=== PATIENT | female | born 1985 | race Caucasian/White ===

== ENCOUNTER 2019-07-13 08:00 | Outpatient (CLI) | payer BC, OTHER ==
[2019-07-13 18:25] LABS: BASOPHILS % (AUTO) 0.4 %; EOSINOPHILS # (AUTO) 0.1 10^3/uL (0.0-0.7); EOSINOPHILS % (AUTO) 0.7 %; HGB - HEMOGLOBIN 14.3 g/dL (12.0-16.0); LYMPHOCYTES # (AUTO) 2.6 10^3/uL (1.5-3.5); LYMPHOCYTES % (AUTO) 28.9 %; MEAN CORPUSCULAR HEMOGLOBIN 30.4 pg (27.0-31.0); MEAN CORPUSCULAR HGB CONC 33.6 g/dL (32.0-36.0); MEAN CORPUSCULAR VOLUME 90.2 fL (81.0-99.0); MEAN PLATELET VOLUME 9.3 fL (7.9-10.8); MONOCYTES # (AUTO) 0.5 10^3/uL (0.0-1.0); NEUTROPHILS # (AUTO) 5.7 10^3/uL (1.5-6.6); NEUTROPHILS % (AUTO) 63.8 %; PLT - PLATELET COUNT 254 10^3/uL (130-450); RED BLOOD COUNT 4.71 10^6/uL (4.20-5.40); RED CELL DISTRIBUTION WIDTH 13.1 % (12.0-15.0); WHITE BLOOD COUNT 8.9 x10^3/uL (4.8-10.8)
[2019-07-13 18:49] LABS: ALBUMIN 4.1 g/dL (3.2-5.5); ALBUMIN/GLOBULIN RATIO 1.2 (1.0-2.2); ALKALINE PHOSPHATASE 60 IU/L (42-121); ALT ALANINE AMINOTRANSFERASE 26 IU/L (10-60); AST ASPARTATE AMINOTRANSFERASE 18 IU/L (10-42); BILIRUBIN,TOTAL 0.7 mg/dL (0.2-1.0); BUN - BLOOD UREA NITROGEN 16 mg/dL (6-20); CALCIUM 8.9 mg/dL (8.5-10.3); CARBON DIOXIDE - CO2 24 mmol/L (21-32); CHLORIDE 107 mmol/L (101-111); CHOL/HDL RATIO 5.4 (<4.4); CHOLESTEROL 194 mg/dL; CREATININE 0.6 mg/dL (0.4-1.0); GFR - MDRD 113 (>89); GLUCOSE 81 mg/dL (70-100); HDL CHOLESTEROL 36 mg/dL; LDL CHOLESTEROL,CALCULATED 133 mg/dL; LDL/HDL RATIO 3.7 (<4.4); SODIUM 138 mmol/L (135-145); TOTAL PROTEIN 7.6 g/dL (6.7-8.2); VLDL CHOLESTEROL 25 mg/dL
== END 2019-07-13 23:59 | disposition home or self-care (01) ==
LOC: LAB.WCP 08:00
PROVIDERS: ATTEND Physician Assistant Medical
DX: Z00.00 Encounter for general adult medical examination without abnormal findings (principal)
CPT/HCPCS: 36415; 80053; 80061; 83721; 84443; 85025

== ENCOUNTER 2020-06-09 11:10 | Outpatient (CLI) | payer OTHER | END 2020-06-09 23:59 | disposition home or self-care (01) | LOC: COV 11:10 | PROVIDERS: ATTEND Family Medicine | DX: R19.7 Diarrhea, unspecified (principal); R09.81 Nasal congestion; Z20.828 Contact with and (suspected) exposure to other viral communicable diseases ==

== ENCOUNTER 2020-09-12 20:09 | Outpatient (CLI) | payer OTHER | END 2020-09-12 20:10 | disposition home or self-care (01) | LOC: COV 20:09 | PROVIDERS: ATTEND Family Medicine | DX: R50.9 Fever, unspecified (principal); R05 Cough; M79.10 Myalgia, unspecified site; R09.81 Nasal congestion; Z20.828 Contact with and (suspected) exposure to other viral communicable diseases ==

== ENCOUNTER 2021-02-11 07:00 | Outpatient (CLI) | payer OTHER ==
--- NOTE | 2021-02-11 16:40 | XRAY Report ---
PROCEDURE: Sacrum/Coccyx INDICATIONS: COCCYX PX TECHNIQUE: 3 views of the sacrum and coccyx acquired. COMPARISON: None FINDINGS: Bones: No fractures or dislocations. No suspicious bony lesions. Soft tissues: Visualized bowel gas pattern is normal. No suspicious soft tissue densities. IUD proj ects over the mid pelvis. IMPRESSION: No fracture. No osseous lesion. If there are persistent symptoms or continued clinical concern for pa thology, then repeat plain film radiographs (7-10 days) or advanced imaging (CT, MR, bone scan) shoul d be considered for further evaluation. Reviewed by: Pallavi Calhoun MD, PhD on 02/11/2021 4:38 PM PDT Approved by: Pallavi Calhoun MD, PhD on 02/11/2021 4:38 PM PDT Station ID: [id number]
== END 2021-02-11 23:59 | disposition home or self-care (01) ==
LOC: DI.N 07:00
PROVIDERS: ATTEND Nurse Practitioner
DX: M53.3 Sacrococcygeal disorders, not elsewhere classified (principal)

== ENCOUNTER 2021-04-02 07:07 | Outpatient (CLI) | payer OTHER ==
--- NOTE | 2021-04-02 13:52 | CT Report ---
PROCEDURE: PELVIS WO INDICATIONS: COCCYX PAIN TECHNIQUE: Noncontrast 3 mm axial sections acquired through the bony pelvis, with coronal and sagittal reformatt ing. For radiation dose reduction, the following was used: automated exposure control, adjustment of mA and/or kV according to patient size. COMPARISON: None. FINDINGS: Image quality: Excellent. And abnormal anterior angulation of the distalmost coccygeal segment, with inner coccygeal angle of a pproximately 45 degrees degrees (normal is 5-25 degrees). There also appears to be ankylosis of the c occygeal segments as well as abnormal features of the coccygeal tip including a small possible spicul e projecting inferiorly (series 7 image 73). Otherwise normal appearance of the sacrum and coccyx. There is no evidence of a soft tissue mass or i nflammatory changes in the region. Partially visualized lower lumbar spine is unremarkable. IUD noted. Scattered sigmoid diverticuli. Regional soft tissues are otherwise within normal limits. IMPRESSION: Anterior angulation of the distal coccyx with increased intercoccygeal angle. Possible small spicule of the coccyx projecting inferiorly, a potential source of pain. 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 Reviewed by: Zeke Perez MD on 04/02/2021 1:50 PM PDT Approved by: Zeke Perez MD on 04/02/2021 1:50 PM PDT Station ID: [id number]
== END 2021-04-02 07:08 | disposition home or self-care (01) ==
LOC: DI 07:07
PROVIDERS: ATTEND Family Medicine
DX: M53.3 Sacrococcygeal disorders, not elsewhere classified (principal)

== ENCOUNTER 2021-07-15 12:46 | Emergency (ER) | payer OTHER ==
[2021-07-15 13:15] LABS: BASOPHILS % (AUTO) 0.3 %; EOSINOPHILS # (AUTO) 0.2 10^3/uL (0.0-0.7); EOSINOPHILS % (AUTO) 1.2 %; HGB - HEMOGLOBIN 14.7 g/dL (12.0-16.0); LYMPHOCYTES # (AUTO) 2.3 10^3/uL (1.5-3.5); LYMPHOCYTES % (AUTO) 16.4 %; MEAN CORPUSCULAR HEMOGLOBIN 31.6 pg (27.0-31.0); MEAN CORPUSCULAR HGB CONC 35.9 g/dL (32.0-36.0); MEAN CORPUSCULAR VOLUME 88.2 fL (81.0-99.0); MONOCYTES # (AUTO) 0.7 10^3/uL (0.0-1.0); MONOCYTES % (AUTO) 4.7 %; NEUTROPHILS # (AUTO) 10.6 10^3/uL (1.5-6.6); NEUTROPHILS % (AUTO) 77.1 %; PLT - PLATELET COUNT 241 10^3/uL (130-450); RED BLOOD COUNT 4.65 10^6/uL (4.20-5.40); RED CELL DISTRIBUTION WIDTH 12.6 % (12.0-15.0); WHITE BLOOD COUNT 13.7 x10^3/uL (4.8-10.8)
[2021-07-15 13:28] LABS: ALBUMIN 4.4 g/dL (3.2-5.5); ALBUMIN/GLOBULIN RATIO 1.3 (1.0-2.2); BILIRUBIN,TOTAL 1.3 mg/dL (0.2-1.0); CALCIUM 9.3 mg/dL (8.5-10.3); CREATININE 0.7 mg/dL (0.4-1.0); POTASSIUM 3.9 mmol/L (3.5-5.0); TOTAL PROTEIN 7.9 g/dL (6.7-8.2)
[2021-07-15] MEDS ORDERED: IOPAMIDOL-300 100 ML VIAL ONE (13:45)
[2021-07-15 13:46] LABS: GLUCOSE, URINE (UA) NEGATIVE (NEGATIVE); KETONES,URINE (UA) 15 mg/dL (NEGATIVE); LEUKOCYTE ESTERASE, URINE TRACE (NEGATIVE); NITRITE,URINE NEGATIVE (NEGATIVE); OCCULT BLOOD,URINE SMALL (NEGATIVE); PROTEIN,URINE TRACE mg/dL (NEGATIVE); UROBILINOGEN,URINE 1 (NORMAL) E.U./dL (NORMAL)
[2021-07-15 13:49] LABS: CLARITY,URINE CLEAR (CLEAR); HCG UR QUAL NEGATIVE
[2021-07-15 13:54] LABS: BILIRUBIN,URINE NEGATIVE (NEGATIVE); ICTOTEST,URINE NEGATIVE
[2021-07-15 13:59] LABS: BACTERIA,URINE Few /HPF (None Seen); RBC,URINE 0-5 /HPF (0-5); SQUAMOUS EPITHELIAL CELL,UR MOD Squamous (<= Few); WBC,URINE 0-3 /HPF (0-5)
--- NOTE | 2021-07-15 14:14 | CT Report ---
PROCEDURE: Abdomen/Pelvis W INDICATIONS: RLQ abd pain CONTRAST: IV CONTRAST: Isovue 300 ml: 100 PO CONTRAST: *NO PO CONTRAST TECHNIQUE: After the administration of intravenous contrast, 5 mm thick sections acquired from the diaphragms to the symphysis. 5 mm thick coronal and sagittal reformats were acquired. For radiation dose reducti on, the following was used: automated exposure control, adjustment of mA and/or kV according to arlette ent size. COMPARISON: None. FINDINGS: Image quality: Excellent. ABDOMEN: Lung bases: Lung bases are clear. Heart size is normal. Solid organs: Liver and spleen are normal in size and enhancement. Gallbladder is normal. Biliary system is non dilated. Pancreas enhances normally. No adrenal nodules. Kidneys demonstrate normal size and enhancement, without hydronephrosis. Peritoneum and bowel: Normal appendix. No mesenteric or pericolonic fat stranding. Normal caliber of the small and large bowel with no evidence of bowel wall thickening. Nodes and vessels: No retroperitoneal or mesenteric adenopathy by size criteria. Aorta and inferior vena cava are normal in size. Miscellaneous: No ventral hernias. PELVIS: Genitourinary: Bladder wall thickness is normal. IUD in the uterus. Ovaries unremarkable. Miscellaneous: No inguinal hernias or adenopathy. Bones: No suspicious bony lesions. No vertebral body compression fractures. IMPRESSION: No findings of acute appendicitis or other acute process to explain symptoms. Reviewed by: Zeke Perez MD on 07/15/2021 2:13 PM PDT Approved by: Zeke Perez MD on 07/15/2021 2:13 PM PDT Station ID: [id number]
--- NOTE | 2021-07-15 15:06 | ED Physician Documentation ---
History of Present Illness - Stated complaint Stated Complaint: ABD PX - Chief complaint Chief Complaint: Abd Pain - History obtained from History obtained from: Patient - Additonal information Additional information: Patient comes emergency department chief complaint of right lower quadrant abdominal pain that started yesterday. Patient states that it has just been lingering and seems to not be getting any better or worse. She also had a temperature which she measured at one 1.7 yesterday and again at 100.5 this morning. Patient went to walk-in clinic but was told to come here/get CT scan. Patient denies any nausea or vomiting. No dysuria or back pain. No history of ovarian cyst. No vaginal symptoms. No other complaints at this time. Review of Systems Ten Systems: 10 systems reviewed and negative Constitutional: reports: Reviewed and negative Eyes: reports: Reviewed and negative Ears: reports: Reviewed and negative Nose: reports: Reviewed and negative Throat: reports: Reviewed and negative Cardiac: reports: Reviewed and negative Respiratory: reports: Reviewed and negative GI: reports: Abdominal Pain : reports: Reviewed and negative Skin: reports: Reviewed and negative Musculoskeletal: reports: Reviewed and negative Neurologic: reports: Reviewed and negative Psychiatric: reports: Reviewed and negative Endocrine: reports: Reviewed and negative Immunocompromised: reports: Reviewed and negative PD PAST MEDICAL HISTORY - Past Medical History Past Medical History: Yes Cardiovascular: None Respiratory: Asthma Neuro: None GI: GERD 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 : None HEENT: None Psych: None Musculoskeletal: Chronic back pain Derm: None - Past Surgical History Past Surgical History: No - Present Medications Home Medications: Ambulatory Orders Medication Instructions Recorded Confirmed Albuterol Sulfate [Proventil Hfa 1 - 2 puffs IH Q4HR PRN 02/13/14 07/15/21 Inhaler] Celecoxib [Celebrex] 200 mg PO DAILY 07/15/21 07/15/21 Omeprazole Magnesium 20 mg PO DAILY 07/15/21 07/15/21 - Allergies Allergies/Adverse Reactions: Allergies Allergy/AdvReac Type Severity Reaction Status Date / Time No Known Drug Allergies Allergy Verified 07/15/21 12:55 - Social History Does the pt smoke?: No Smoking Status: Never smoker Does the pt drink ETOH?: Yes Does the pt have substance abuse?: No - Immunizations Immunizations are current?: No Immunizations: TDAP current <10years - POLST Patient has POLST: No PD ED PE NORMAL - Vitals Vital signs reviewed: Yes - General General: Alert and oriented X 3, No acute distress, Well developed/nourished - HEENT HEENT: Atraumatic, PERRL, EOMI, Moist mucous membranes - Neck Neck: Supple, no meningeal sign - Cardiac Cardiac: RRR, No murmur, Strong equal pulses - Respiratory Respiratory: No respiratory distress, Clear bilaterally - Abdomen Abdomen: Soft, Non distended, Other (Moderate tenderness right lower quadrant, no rebound or guarding.) - Back Back: No CVA TTP - Derm Derm: Normal color, Warm and dry, No rash - Extremities Extremities: No deformity, No edema, No calf tenderness / cord - Neuro Neuro: Alert and oriented X 3, ampoule filler 2-12 intact, Normal speech - Psych Psych: Normal mood, Normal affect Results - Vitals Vitals: Vital Signs - 24 hr 07/15/21 07/15/21 12:55 15:16 Temperature 36.9 C Heart Rate 91 89 Respiratory 16 18 Rate Blood Pressure 120/67 117/71 O2 Saturation 96 100 Oxygen O2 Source Room air - Labs Labs: Laboratory Tests 07/15/21 07/15/21 07/15/21 13:11 13:11 13:22 WBC 13.7 H RBC 4.65 Hgb 14.7 Hct 41.0 MCV 88.2 MCH 31.6 H MCHC 35.9 RDW 12.6 Plt Count 241 MPV 9.0 Neut # (Auto) 10.6 H Lymph # (Auto) 2.3 Hayes # (Auto) 0.7 Eos # (Auto) 0.2 Baso # (Auto) 0.0 Absolute Nucleated RBC 0.00 Nucleated RBC % 0.0 Sodium 140 Potassium 3.9 Chloride 106 Carbon Dioxide 24 Anion Gap 10.0 BUN 21 H Creatinine 0.7 Estimated GFR (MDRD) 94 Glucose 103 H Calcium 9.3 Total Bilirubin 1.3 H AST 15 ALT 21 Alkaline Phosphatase 65 Total Protein 7.9 Albumin 4.4 Globulin 3.5 Albumin/Globulin Ratio 1.3 Lipase 18 L Urine Color DARK YELLOW Urine Clarity CLEAR Urine pH 6.0 Ur Specific [place] 1.025 Urine Protein TRACE Urine Glucose (UA) NEGATIVE Urine Ketones 15 H Urine Occult Blood SMALL H Urine Nitrite NEGATIVE Urine Bilirubin NEGATIVE Urine Urobilinogen 1 (NORMAL) Ur Leukocyte Esterase TRACE H Urine RBC 0-5 Urine WBC 0-3 Ur Squamous Epith Cells MOD Squamous H Urine Bacteria Few Ur Microscopic Review INDICATED Urine Culture Comments NOT INDICATED Urine HCG, Qual NEGATIVE - Rads (name of study) CT abd/pelvis Radiology: Final report received, EMP read indepedently, See rad report (neg) PD MEDICAL DECISION MAKING - ED course Complexity details: reviewed results, re-evaluated patient, considered differential, d/w patient ED course: ,Patient was worked up with labs, which showed a leukocytosis of 13.7 urinalysis, which was contaminated but minimally otherwise positive, and a CT scan of the abdomen and pelvis, which was unremarkable. The patient was not febrile here. I discussed with her that her work-up is negative and that at this point in time I am not sure if she has a viral syndrome or if she has a condition such as appendicitis or UTI that just has not quite declared itself yet. We discussed having a low threshold for return for pain should worsen, and we also discussed that if she is not any better tomorrow in about 24 hours, she should come back for reevaluation. We discussed symptomatic management at home the usual indications for return. Departure - Departure Disposition: 01 Home, Self Care Clinical Impression: Abdominal pain Qualifiers: Abdominal location: right lower quadrant Qualified Code(s): R10.31 - Right l ower quadrant pain Condition: Stable Instructions: ED Abdominal Pain Unkn Cause Comments: Your white blood cell count was moderately elevated, but your CT scan was negative. It is possible that you have a viral syndrome that is locally inflaming some of your lymph nodes. However, sometimes the sorts of situations occur when you are in the early end of urinary tract infection or appendicitis. As such, if your pain is not improved at all by 24 hours from now, you should come and have both your blood count and your CT scan rechecked. If your pain acutely worsens at some point before then, you should come at that time. If it seems like things are gradually getting better, then you do not need to return to the emergency department, and can fairly safely assume that this is a viral illness. You may take ibuprofen and/or Tylenol to help with your symptoms at home. Please drink plenty of fluids. Forms: Activity restrictions Discharge Date/Time: 07/15/21 15:17
[2021-07-15 15:17] VITALS: BP 117/71
[2021-07-15] MEDS ORDERED: IOPAMIDOL-300 100 ML VIAL IVP ONE (19:05)
== END 2021-07-15 15:17 | disposition home or self-care (01) ==
LOC: ED 12:46
DX: R10.31 Right lower quadrant pain (principal); D72.829 Elevated white blood cell count, unspecified
CPT/HCPCS: 36415; 74177; 80053; 81001; 81025; 83690; 85025; 99284; Q9967; 81003; 87086

== ENCOUNTER 2022-01-12 17:14 | Outpatient (CLI) | payer OTHER ==
--- NOTE | 2022-01-13 12:11 | XRAY Report ---
PROCEDURE: Cervical Spine 2 View INDICATIONS: R ARM PX TECHNIQUE: 3 view(s) of the cervical spine were acquired. COMPARISON: None. FINDINGS: Bones: No fractures or dislocations to the C7-T1 level. Straightening of normal cervical lordosis i s seen. The lateral masses of C1 appear intact on the odontoid view. No suspicious bony lesions. Soft tissues: No prevertebral soft tissue swelling. IMPRESSION: Straightening of normal cervical lordosis. No cervical spine fracture or dislocation. No gross prevertebral soft tissue abnormality. Reviewed by: Juve Santos MD on 01/13/2022 12:09 PM PST Approved by: Juve Santos MD on 01/13/2022 12:09 PM PST Station ID: [id number]
== END 2022-01-12 23:59 | disposition home or self-care (01) ==
LOC: DI.N 17:14
PROVIDERS: ATTEND Physician Assistant Medical
DX: M79.601 Pain in right arm (principal)

== ENCOUNTER 2023-01-03 10:07 | Outpatient (CLI) | payer OTHER ==
[2023-01-03 10:27] LABS: BASOPHILS # (AUTO) 0.1 10^3/uL (0.0-0.1); BASOPHILS % (AUTO) 0.8 %; EOSINOPHILS # (AUTO) 0.1 10^3/uL (0.0-0.7); EOSINOPHILS % (AUTO) 1.6 %; HCT - HEMATOCRIT 42.6 % (37.0-47.0); HGB - HEMOGLOBIN 14.5 g/dL (12.0-16.0); LYMPHOCYTES % (AUTO) 37.7 %; MEAN CORPUSCULAR HEMOGLOBIN 29.6 pg (27.0-31.0); MEAN CORPUSCULAR VOLUME 86.9 fL (81.0-99.0); MEAN PLATELET VOLUME 8.7 fL (7.9-10.8); MONOCYTES # (AUTO) 0.6 10^3/uL (0.0-1.0); MONOCYTES % (AUTO) 6.9 %; NEUTROPHILS # (AUTO) 4.2 10^3/uL (1.5-6.6); NEUTROPHILS % (AUTO) 52.7 %; PLT - PLATELET COUNT 281 10^3/uL (130-450); RED CELL DISTRIBUTION WIDTH 12.7 % (12.0-15.0)
[2023-01-03 10:36] LABS: ALBUMIN 4.4 g/dL (3.2-5.5); ALBUMIN/GLOBULIN RATIO 1.3 (1.0-2.2); ALKALINE PHOSPHATASE 69 IU/L (42-121); ALT ALANINE AMINOTRANSFERASE 22 IU/L (10-60); AST ASPARTATE AMINOTRANSFERASE 18 IU/L (10-42); BILIRUBIN,TOTAL 0.7 mg/dL (0.2-1.0); BUN - BLOOD UREA NITROGEN 16 mg/dL (6-20); CALCIUM 9.4 mg/dL (8.5-10.3); CARBON DIOXIDE - CO2 24 mmol/L (21-32); CHLORIDE 102 mmol/L (101-111); CHOL/HDL RATIO 5.9 (<4.4); CHOLESTEROL 172 mg/dL; CREATININE 0.7 mg/dL (0.4-1.0); GFR - MDRD 93 (>89); GLUCOSE 107 mg/dL (70-100); HDL CHOLESTEROL 29 mg/dL; LDL CHOLESTEROL,CALCULATED 102 mg/dL; LDL/HDL RATIO 3.5 (<4.4); SODIUM 137 mmol/L (135-145); TOTAL PROTEIN 7.9 g/dL (6.7-8.2); TRIGLYCERIDES 206 mg/dL; VLDL CHOLESTEROL 41 mg/dL
[2023-01-03 10:48] LABS: THYROID STIMULATING HORMONE 2.47 uIU/mL (0.34-5.60)
== END 2023-01-03 10:08 | disposition home or self-care (01) ==
LOC: LAB 10:07
PROVIDERS: ATTEND Nurse Practitioner
DX: R53.83 Other fatigue (principal); Z13.220 Encounter for screening for lipoid disorders
CPT/HCPCS: 36415; 80053; 80061; 83721; 84443; 85025

== ENCOUNTER 2023-03-08 09:30 | Day surgery (SDC) | payer OTHER ==
[2023-03-08] MEDS ORDERED: LACTATED RINGERS 1,000 ML IV ONE (09:56)
[2023-03-08] MEDS ORDERED: BUPIVACAINE 0.5% PF 30 ML VIAL ONE (09:57)
[2023-03-08] MEDS ORDERED: POTASSIUM IODIDE/IODINE 14 ML SOLUTION ONE (10:00)
[2023-03-08 10:12] LABS: HCG UR QUAL NEGATIVE
[2023-03-08 10:45] LABS: BASOPHILS # (AUTO) 0.1 10^3/uL (0.0-0.1); BASOPHILS % (AUTO) 0.8 %; EOSINOPHILS # (AUTO) 0.1 10^3/uL (0.0-0.7); EOSINOPHILS % (AUTO) 1.6 %; HCT - HEMATOCRIT 40.3 % (37.0-47.0); HGB - HEMOGLOBIN 14.1 g/dL (12.0-16.0); LYMPHOCYTES # (AUTO) 2.7 10^3/uL (1.5-3.5); LYMPHOCYTES % (AUTO) 38.7 %; MEAN CORPUSCULAR HEMOGLOBIN 30.3 pg (27.0-31.0); MEAN CORPUSCULAR VOLUME 86.5 fL (81.0-99.0); MEAN PLATELET VOLUME 8.8 fL (7.9-10.8); MONOCYTES # (AUTO) 0.4 10^3/uL (0.0-1.0); MONOCYTES % (AUTO) 5.9 %; NEUTROPHILS # (AUTO) 3.7 10^3/uL (1.5-6.6); NEUTROPHILS % (AUTO) 52.7 %; PLT - PLATELET COUNT 302 10^3/uL (130-450); RED BLOOD COUNT 4.66 10^6/uL (4.20-5.40); WHITE BLOOD COUNT 7.1 x10^3/uL (4.8-10.8)
[2023-03-08] MEDS ORDERED: MIDAZOLAM 2 MG/2 ML VIAL ONE (14:03)
[2023-03-08] MEDS ORDERED: PROPOFOL 500 MG/50 ML 500 MG/50 ML VIAL ONE (14:03)
[2023-03-08] MEDS ORDERED: fentaNYL 100 MCG/2 ML VIAL ONE (14:21)
[2023-03-08] MEDS ORDERED: PROPOFOL 200 MG/20 ML VIAL IVP ONE (14:38)
[2023-03-08] MEDS ORDERED: BUPIVACAINE 0.5% PF 30 ML VIAL SUBQ ONE ×2 (14:38)
[2023-03-08] MEDS ORDERED: FERRIC SUBSULFATE 8 ML SOLUTION (FOR OR) TOP ONE (14:39)
[2023-03-08] MEDS ORDERED: POTASSIUM IODIDE/IODINE 14 ML SOLUTION TOP ONE (14:39)
--- NOTE | 2023-03-08 14:54 | ANESTHESIA ---
Pre-Anesthesia VS, & Labs - Diagnosis cervical polyp - Procedure LEEP Vital Signs: Temp Pulse Resp BP Pulse Ox O2 Flow Rate 36.2 C L 80 16 114/63 95 03/08/23 09:57 03/08/23 09:57 03/08/23 09:57 03/08/23 09:57 03/08/23 09:57 Height: 5 ft 1 in Weight (kg): 91 kg Body Mass Index: 37.9 BMI Classification: Obese - NPO >8 hours - Is Patient ?: No - Lab Results Current Lab Results: Laboratory Tests 03/08/23 10:41: WBC 7.1, RBC 4.66, Hgb 14.1, Hct 40.3, MCV 86.5, MCH 30.3, MCHC 35.0, RDW 12.0, Plt Count 302, MPV 8.8, Neut # (Auto) 3.7, Lymph # (Auto) 2.7, Mitchell # (Auto) 0.4, Eos # (Auto) 0.1, Baso # (Auto) 0.1, Absolute Nucleated RBC 0.00, Nucleated RBC % 0.0 Fish Bones: 03/08/23 10:41 Home Medications and Allergies Home Medications: Ambulatory Orders traMADol [Ultram] 50 mg PO Q4-6H 02/24/23 Prolotherapy 03/08/23 Omeprazole Magnesium 20 mg PO DAILY 07/15/21 traMADol [Ultram] 50 mg PO Q4-6H 02/24/23 Prolotherapy 03/08/23 Allergies/Adverse Reactions: Allergies Allergy/AdvReac Type Severity Reaction Status Date / Time No Known Drug Allergies Allergy Verified 07/15/21 12:55 Anes History & Medical History - Anesthetic History Anesthesia Complications: reports: No previous complications Family history of Anesthesia Complications: Denies Family history of Malignant Hyperthermia: Denies - Medical History Cardiovascular: reports: None Pulmonary: reports: Asthma, Sleep apnea Gastrointestinal: reports: GERD Urinary: reports: None Neuro: reports: None Musculoskeletal: reports: Chronic back pain Endocrine/Autoimmune: reports: Other Blood Disorders: reports: None Skin: reports: None Smoking Status: Never smoker - Surgical History Gynecologic: reports: LEEP (Cervical surgery) Exam General: Alert, Oriented x3, Cooperative Dental: WNL Mouth Openin Fingerbreadth Neck Mobility: Normal Mallampati classification: III Thyromental Distance: 4-6 cm Respiratory: Lungs clear Cardiovascular: Regular rate Plan Anesthesia Type: Total IV Consent for Procedure(s) Verified and Reviewed: Yes Code Status: Attempt Resuscitation ASA classification: 2-Mild systemic disease Is this case an emergency?: No
[2023-03-08] MEDS ORDERED: oxyCODONE 5 MG TABLET PO PRN (15:00)
[2023-03-08] MEDS ORDERED: IBUPROFEN 600 MG TABLET PO PRN (15:00)
--- NOTE | 2023-03-08 15:03 | OPERATIVE REPORT ---
Operative Report - General Procedure Date: 03/08/23 Planned Procedure: LEEP cervical conization and endocervical curettage Pre-Op Diagnosis: Severe cervical dysplasia Procedure Performed: LEEP cervical conization and endocervical curettage Post Op Diagnosis: Same - Procedure Note Primary Surgeon: Alek Hansen MD Anesthesia Provider: Trinidad North CRNA Anesthesia Technique: Other (TIVA) Pathology: Anterior cervical Posterior cervical lip Endocervical margin Endocervical curettage IV Fluids (mL): 250 Estimated Blood Loss (mL): 15 Urine Output (mL): 25 Complications: None - Other Other Information/Narrative: Patient was taken the operating room and placed in dorsolithotomy position. TIVA anesthesia was obtained without difficulty. Coated speculum was used to visualize the cervix. IUD strings were noted coming from the cervical os. The large loop was used to perform cervical conization, however the anterior lip came off separate from the posterior lip. The cautery tip was exchanged for a square and the endocervical margin was resected in a Top-Hat fashion. An ECC was then performed with a Kevorkian curette. Hemostasis was achieved with ball electrocautery followed by Monsel solution. Patient was hemostatic and all instruments were removed from the vagina. Patient was taken the PACU in stable condition.
[2023-03-08 15:54] VITALS: BP 126/72
[2023-03-08] MEDS ORDERED: LACTATED RINGERS 800 ML IV ONE (15:56)
== END 2023-03-08 23:59 | disposition home or self-care (01) ==
LOC: SDS 09:30
PROVIDERS: ATTEND Obstetrics & Gynecology
PROC: 0UBC7ZZ Excision of Cervix, Via Natural or Artificial Opening (ICD-10-PCS; principal; 2023-03-08 11:00)
DX: N87.1 Moderate cervical dysplasia (principal); E66.9 Obesity, unspecified; Z68.37 Body mass index [BMI] 37.0-37.9, adult; G47.30 Sleep apnea, unspecified; Z97.5 Presence of (intrauterine) contraceptive device
CPT/HCPCS: 57522; 81025; 85025; J7120

== ENCOUNTER 2023-09-13 12:39 | Day surgery (SDC) | payer OTHER ==
[2023-09-13] MEDS ORDERED: LACTATED RINGERS 1,000 ML IV ONE ×2 (12:40→15:15)
[2023-09-13 12:59] LABS: HCG UR QUAL NEGATIVE
[2023-09-13 13:15] LABS: BASOPHILS % (AUTO) 0.4 %; EOSINOPHILS # (AUTO) 0.1 10^3/uL (0.0-0.7); EOSINOPHILS % (AUTO) 1.3 %; HCT - HEMATOCRIT 41.5 % (37.0-47.0); HGB - HEMOGLOBIN 14.8 g/dL (12.0-16.0); LYMPHOCYTES # (AUTO) 3.2 10^3/uL (1.5-3.5); LYMPHOCYTES % (AUTO) 42.4 %; MEAN CORPUSCULAR HEMOGLOBIN 30.4 pg (27.0-31.0); MEAN CORPUSCULAR HGB CONC 35.7 g/dL (32.0-36.0); MEAN CORPUSCULAR VOLUME 85.2 fL (81.0-99.0); MEAN PLATELET VOLUME 8.8 fL (7.9-10.8); MONOCYTES # (AUTO) 0.4 10^3/uL (0.0-1.0); MONOCYTES % (AUTO) 5.3 %; NEUTROPHILS # (AUTO) 3.8 10^3/uL (1.5-6.6); NEUTROPHILS % (AUTO) 50.3 %; PLT - PLATELET COUNT 299 10^3/uL (130-450); RED BLOOD COUNT 4.87 10^6/uL (4.20-5.40); RED CELL DISTRIBUTION WIDTH 12.3 % (12.0-15.0); WHITE BLOOD COUNT 7.5 x10^3/uL (4.8-10.8)
[2023-09-13] MEDS ORDERED: ONDANSETRON 4 MG/2 ML VIAL IVP PRN (13:16)
[2023-09-13] MEDS ORDERED: NALOXONE 0.4 MG/ML VIAL IVP PRN (13:16)
[2023-09-13] MEDS ORDERED: HYDROmorphone 0.5 MG/0.5 ML SYRINGE IVP PRN (13:16)
[2023-09-13] MEDS ORDERED: ATROPINE ABBOJECT 1 MG/10 ML SYRINGE IVP PRN (13:16)
[2023-09-13] MEDS ORDERED: ePHEDrine 50 MG/ML VIAL IVP PRN (13:16)
[2023-09-13] MEDS ORDERED: fentaNYL 100 MCG/2 ML VIAL IVP PRN (13:16)
--- NOTE | 2023-09-13 13:16 | ANESTHESIA ---
Pre-Anesthesia VS, & Labs - Diagnosis asc-h - Procedure cold knife cone Vital Signs: Temp Pulse Resp BP Pulse Ox O2 Flow Rate 36.3 C L 83 17 126/67 97 09/13/23 13:00 09/13/23 13:00 09/13/23 13:00 09/13/23 13:00 09/13/23 13:00 Height: 5 ft 1 in Weight (kg): 88.5 kg Body Mass Index: 36.8 BMI Classification: Obese - NPO >8 hours - Is Patient ?: No - Lab Results Lab results reviewed: Yes Home Medications and Allergies Home Medications: Ambulatory Orders Phentermine HCl 7.5 mg PO DAILY 09/06/23 Omeprazole Magnesium 20 mg PO DAILY 07/15/21 Phentermine HCl 7.5 mg PO DAILY 09/06/23 Allergies/Adverse Reactions: Allergies Allergy/AdvReac Type Severity Reaction Status Date / Time No Known Drug Allergies Allergy Verified 07/15/21 12:55 Anes History & Medical History - Anesthetic History Anesthesia Complications: reports: No previous complications Family history of Anesthesia Complications: Denies Family history of Malignant Hyperthermia: Denies - Medical History Cardiovascular: reports: None Pulmonary: reports: Asthma, Sleep apnea Gastrointestinal: reports: GERD Urinary: reports: None Neuro: reports: None Musculoskeletal: reports: Chronic back pain Endocrine/Autoimmune: reports: Other Blood Disorders: reports: None Skin: reports: None Smoking Status: Never smoker - Surgical History Gynecologic: reports: LEEP (Cervical surgery) Exam General: Alert, Oriented x3, Cooperative Dental: WNL, Other (braces) Mouth Openin Fingerbreadth Neck Mobility: Normal Mallampati classification: II Thyromental Distance: 4-6 cm Respiratory: Lungs clear Cardiovascular: Regular rate Plan Anesthesia Type: General, MAC Consent for Procedure(s) Verified and Reviewed: Yes Code Status: Attempt Resuscitation ASA classification: 2-Mild systemic disease Is this case an emergency?: No
[2023-09-13] MEDS ORDERED: PROPOFOL 500 MG/50 ML 500 MG/50 ML VIAL ONE ×2 (13:28→14:40)
[2023-09-13] MEDS ORDERED: fentaNYL 100 MCG/2 ML VIAL ONE (13:30)
[2023-09-13] MEDS ORDERED: MIDAZOLAM 2 MG/2 ML VIAL ONE (13:30)
[2023-09-13] MEDS ORDERED: LACTATED RINGERS 1,000 ML IV SCH (14:00)
--- NOTE | 2023-09-13 14:07 | HISTORY & PHYSICAL EXAMINATION ---
HPI - History Obtained From History obtained from: Patient Exam limitations: No limitations - History of Present Illness HPI Comment/Other: HPI: Patient is a 38-year-old -0-1-2 presenting today for scheduled cold knife conization. She had a previous LEEP for ANGELA-3 that was negative except for ANGELA- 2 in the ECC. Prior to that her Pap smear was atypical glandular cells favor neoplastic H CASA, with HPV positive. She subsequently had a repeat Pap smear showing ASC-H with negative ECC. We discussed options and patient elected for a conization rather than proceed with hysterectomy. All other symptoms reviewed and were negative except per HPI. PMH ANGELA-3 Obesity Asthma: Likely reactive airway disease GERD De Quervain's tenosynovitis PSH [place] tooth extraction LEEP SH Rare alcohol use. Occasional marijuana. Non-smoker. 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 Respiratory: Normal rate of respiration. No accessory muscle use, normal respiratory effort. Cardiovascular: Regular rate and rhythm Abdomen: Nontender, nondistended Extremities: Normal range of motion Neuro: Oriented x3. Normal movements Psych: Appropriate mood and affect. Normal judgment and insight Plan 38-year-old -0-1-2 with ASC-H 1. Cold knife conization -Discussed risk, benefits, alternatives to cold knife conization and patient like to proceed with excision rather than hysterectomy. She understands the ri sk of bleeding, infection, damage to surrounding organs. She would consent to a blood transfusion. No other concerns and plan for cold knife conization in the OR today. 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: LEEP (Cervical surgery) Social & Family Hx - Social History Does the pt smoke?: No Smoking Status: Never smoker Does the pt drink ETOH?: Yes Does the pt have substance abuse?: No - POLST Patient has POLST: No Meds/Allgy - Home Medications Home Medications: Ambulatory Orders Medication Instructions Recorded Confirmed Omeprazole Magnesium 20 mg PO DAILY 07/15/21 09/13/23 Phentermine HCl 7.5 mg PO DAILY 09/06/23 09/13/23 - Allergies Allergies/Adverse Reactions: Allergies Allergy/AdvReac Type Severity Reaction Status Date / Time No Known Drug Allergies Allergy Verified 07/15/21 12:55 Exam - Vital Signs Vital Signs: Vital Signs x48h Temp Pulse Resp BP Pulse Ox 09/13/23 13:00 97.3 F L 83 17 126/67 97 Results - Lab Results Fish Bones: 09/13/23 12:55 Other Lab Results: Lab Results x24hrs 09/13/23 09/13/23 Range/Units 12:55 12:45 WBC 7.5 (4.8-10.8) x10^3/uL RBC 4.87 (4.20-5.40) 10^6/uL Hgb 14.8 (12.0-16.0) g/dL Hct 41.5 (37.0-47.0) % MCV 85.2 (81.0-99.0) fL MCH 30.4 (27.0-31.0) pg MCHC 35.7 (32.0-36.0) g/dL RDW 12.3 (12.0-15.0) % Plt Count 299 (130-450) 10^3/uL MPV 8.8 (7.9-10.8) fL Neut # (Auto) 3.8 (1.5-6.6) 10^3/uL Lymph # (Auto) 3.2 (1.5-3.5) 10^3/uL [place] # (Auto) 0.4 (0.0-1.0) 10^3/uL Eos # (Auto) 0.1 (0.0-0.7) 10^3/uL Baso # (Auto) 0.0 (0.0-0.1) 10^3/uL Absolute Nucleated RBC 0.00 x10^3/uL Nucleated RBC % 0.0 /100WBC Urine HCG, Qual NEGATIVE
[2023-09-13] MEDS ORDERED: FERRIC SUBSULFATE 8 ML SOLUTION (FOR OR) TOP ONE (14:11)
[2023-09-13] MEDS ORDERED: BUPIVACAINE 0.25% PF 30 ML VIAL SUBQ ONE (14:11)
[2023-09-13] MEDS ORDERED: LIDOCAINE 1%-EPI 1:100000 20 ML MDV SUBQ ONE (14:11)
[2023-09-13] MEDS ORDERED: BUPIVACAINE 0.25% PF 30 ML VIAL ONE (14:20)
[2023-09-13] MEDS ORDERED: LIDOCAINE 1%-EPI 1:100000 20 ML MDV ONE (14:21)
[2023-09-13] MEDS ORDERED: DEXAMETHASONE 4 MG/ML VIAL ONE (14:29)
[2023-09-13] MEDS ORDERED: ONDANSETRON 4 MG/2 ML VIAL ONE (14:29)
[2023-09-13] MEDS ORDERED: KETOROLAC 30 MG/ML VIAL ONE (14:57)
[2023-09-13] MEDS ORDERED: PROPOFOL 200 MG/20 ML VIAL IVP ONE (15:08)
[2023-09-13] MEDS ORDERED: oxyCODONE 5 MG TABLET PO PRN (15:13)
--- NOTE | 2023-09-13 15:16 | OPERATIVE REPORT ---
Operative Report - General Procedure Date: 09/13/23 Planned Procedure: Cold knife conization Pre-Op Diagnosis: ASC-H Procedure Performed: Cold knife conization Post Op Diagnosis: Cold knife conization status post cold knife conization - Procedure Note Primary Surgeon: Alek Hansen MD Anesthesia Provider: Sterling Carter CRNA Anesthesia Technique: Other (IV general) Pathology: Cervical conization with tag at 12:00 IV Fluids (mL): 500 Estimated Blood Loss (mL): 50 Urine Output (mL): 0 (Voided immediately prior to the procedure) Findings: Small cervix, status post LEEP. IUD strings initially not seen in the os, but after conization were seen through the remainder of the os. Surgicel was sewn into place. - Other Other Information/Narrative: Patient was counseled the risk, benefits, alternatives of cold knife conization and was counseled on the process of cervical dysplasia and was offered referral to gynecologic oncology rather than conization, but patient declined. She was taken to the OR where IV general anesthesia was obtained without difficulty. She was placed in the dorsolithotomy position with the legs placed in great white stirrups. Patient voided immediately before the OR. Weighted speculum and right angle speculum was used to visualize the cervix which was notably small and difficult to manipulate due to previous excisions. The anterior lip was grasped with a single-tooth tenaculum. I then performed a cervical block with approximate 4 mL of local anesthesia. Stay sutures then placed at the 3:00 and 9:00 using 2-0 Vicryl. Cervix was then infiltrated with local anesthesia with epinephrine. The cervix then dilated and the dilator left in place. An 11 blade scalpel was then used to make a circumferential incision around the cervix making a cone which was tagged at 12:00. This was removed and sent to pathology. Initially, Bovie cautery was used to achieve hemostasis, but a few small areas remain bleeding, so Monsel solution was placed. Is again stop the bleeding momentarily, but has not returned, I did a circumferential suture tying the mucosa to the exposed bleeding edge. A small bout of bleeding was still noted, so Surgicel was placed and sewn in place with the stay sutures which were then trimmed. Patient was observed and found to be hemostatic and was taken to the PACU in good condition after sponge and needle counts were correct.
[2023-09-13] MEDS ORDERED: TRANEXAMIC ACID 1,000 MG/10 ML VIAL ONE (15:18)
--- NOTE | 2023-09-13 15:24 | ANESTHESIA POST OP EVALUATION ---
Anesthesia Post Eval - Post Anesthesia Eval Vitals: Last Vital Signs Temp 36.3 C L 09/13/23 15:15 Pulse 100 09/13/23 15:15 Resp 16 09/13/23 15:15 BP 97/55 L 09/13/23 15:15 Pulse Ox 96 09/13/23 15:15 O2 Flow Rate CV Function Including HR & BP: Stable Pain Control: Satisfactory Nausea & Vomiting: Negative Mental Status: Baseline Respiratory Status: Airway Patent Hydration Status: Satisfactory Anesthesia Complications: None
[2023-09-13 16:02] VITALS: BP 126/73; O2SAT 100
[2023-09-13] MEDS ORDERED: IBUPROFEN 600 MG TABLET PO SCH (18:00)
== END 2023-09-13 12:40 | disposition home or self-care (01) ==
LOC: SDS 12:39
PROVIDERS: ATTEND Obstetrics & Gynecology
PROC: 0UBC7ZX Excision of Cervix, Via Natural or Artificial Opening, Diagnostic (ICD-10-PCS; principal; 2023-09-13 14:00)
DX: N87.1 Moderate cervical dysplasia (principal); E66.9 Obesity, unspecified; Z68.36 Body mass index [BMI] 36.0-36.9, adult; J45.909 Unspecified asthma, uncomplicated; G47.30 Sleep apnea, unspecified
CPT/HCPCS: 36415; 57520; 81025; 85025; J7120